=== PATIENT | female | born 1965 | race Caucasian/White ===

== ENCOUNTER 2018-09-17 09:04 | Observation (INO) | payer MEDICAID ==
[~2018-09-17] VITALS: Ht 160 cm; Wt 87.9 kg
[2018-09-17] MEDS ORDERED: METHADONE H10 MG/TAB PO (11:09)
[2018-09-17] MEDS ORDERED: AMITRIPTYLINE H10 M1 PO (11:10)
[2018-09-17 12:33] VITALS: BP 93/47; PULSE 62; TEMP 98.9
--- NOTE | 2018-09-17 15:50 | NUR ---
Patient admitted from transfer from [facility] for SBO. Dr Mendoza notified of admission. See assessment. Abdomen distended. +Flatus. Bowel sounds active. No c/o abdominal pain with palpation. Refuses NGT. Tearful. No c/o pain or discomfort.
[2018-09-17 15:58] VITALS: BP 104/61; PULSE 57; TEMP 99.2
[2018-09-17 20:40] VITALS: BP 109/53; PULSE 60; TEMP 98.6
--- NOTE | 2018-09-17 21:00 | NUR ---
Patient report received from DANN Easley at bedside during shift report. Patient is resting in bed, denies significant pain when at rest, but reports that when she was up in the room her pain increased. At the start of shift patient was set on leaving, but then decided to stay. She is tearful during assessment, but agrees that she needs medical attention. Scheduled methadone to be given. IV fluids infusing, patient tolerating clear liquid diet, denies and n/v at this time. No other needs reported/observed.
[2018-09-17 23:48] VITALS: BP 96/48; PULSE 66; TEMP 98.5
[2018-09-18 04:44] VITALS: BP 114/59; PULSE 73; TEMP 98.3
[2018-09-18 07:13] VITALS: BP 109/58; PULSE 59; TEMP 98.1
[2018-09-18 07:24] LABS: BASO % 0.4 % (0.0-2.0); EOS # 0.2 (0.0-0.7); EOS % 2.5 % (0-4.0); GRAN # 5.2 (1.4-6.5); GRAN % 56.2 % (42.2-75.2); HEMATOCRIT 41.4 % (37.0-47.0); HEMOGLOBIN 13.7 g/dl (12.5-16.0); LYMPH # 3.2 (1.2-3.4); LYMPH % 34.2 % (20.0-51.0); MEAN CELL VOLUME 94 fl (80.0-100.0); MEAN CORPUSCULAR HEMOGLOBIN 31 pg (27.0-31.0); MEAN CORPUSCULAR HGB CONC 33 g/dl (33.0-37.0); MEAN PLATELET VOLUME 10.3 fl (7.4-10.4); MONO # 0.6 (0.1-0.6); MONO % 6.4 % (1.7-9.3); PLATELET COUNT 197 K/mm3 (130-400); RED BLOOD COUNT 4.42 M/mm3 (4.10-5.30); REDCELL DISTRIBUTION WIDTH-CV 11.7 % (11.5-14.5)
[2018-09-18 07:42] LABS: ALBUMIN 3.4 gm/dL (3.5-5.0); BILIRUBIN,TOTAL 2.3 mg/dL (0.0-1.0); CALCIUM 8.9 mg/dL (8.4-10.2); CREATININE, serum 0.79 (0.52-1.25); POTASSIUM 3.4 mmol/L (3.4-5.0)
--- NOTE | 2018-09-18 10:00 | NUR ---
Patient alert and oriented, answers questions appropriately. See assessment. Abdomen soft, non tender, non distended. Bowel sounds active x4 quads. +Flatus. No c/o abdominal pain or tenderness with palpation. No other c/o at this time.
--- NOTE | 2018-09-18 11:21 | NUR ---
Initial visit; Patient thanked [employer] [facility] for looking in on her and offering comfort and prayer.
--- NOTE | 2018-09-18 12:55 | NUR ---
Discharge instructions reivewed with patient and daughter, verbalized understanding. Discharged ambulatory to auto/home with family at 1245.
== END 2018-09-18 12:45 | disposition home or self-care (01) ==
LOC: SURG 09:04
PROVIDERS: ADMIT Surgery
DX: R10.9 Unspecified abdominal pain (principal); G89.29 Other chronic pain; M54.89 Other dorsalgia; M54.2 Cervicalgia; F11.90 Opioid use, unspecified, uncomplicated; Z90.49 Acquired absence of other specified parts of digestive tract
CPT/HCPCS: J7030